=== PATIENT | male | born 1940 | race Caucasian/White ===

== ENCOUNTER 2016-09-05 10:54 | Emergency (ER) | payer MEDICARE ==
[~2016-09-05] VITALS: Ht 180.3 cm; Wt 115.0 kg
[~2016-09-05 10:54] MED LIST: FLOV44AE IN; LOPI600T PO; LOSA50TA PO; METF1000 PO; METO100T9 PO; NORT50CA PO; NOVO7030P2 SQ; PRED20 PO; ULTR50TA PO; VENTAER INH; VITA10002 PO; WAL-10TA2 PO; testosterone
[2016-09-05 10:57] VITALS: BP 142/63; PULSE 73; RESP 17; TEMP 98.2; O2SAT 100
[2016-09-05] MEDS ORDERED: NOVO7030P2 SQ ×2 (11:10)
[2016-09-05] MEDS ORDERED: LORA10TA PO (11:10)
[2016-09-05] MEDS ORDERED: GEMF600T PO (11:10)
[2016-09-05] MEDS ORDERED: ASPI81CH CHEW (11:10)
[2016-09-05] MEDS ORDERED: METO50TA PO (11:10)
[2016-09-05] MEDS ORDERED: VITATAB43 PO (11:10)
[2016-09-05] MEDS ORDERED: LOSA50TA PO (11:10)
[2016-09-05] MEDS ORDERED: FLUT50SP EACH NARE (11:10)
[2016-09-05] MEDS ORDERED: NORT50CA PO (11:10)
[2016-09-05] MEDS ORDERED: METF1000 PO (11:10)
[2016-09-05] MEDS ORDERED: CHOL100025 CHEW (11:10)
[2016-09-05] MEDS ORDERED: TRAM50TA PO (11:10)
--- NOTE | 2016-09-05 11:25 | PD ---
Physical Exam Date Seen by Provider: Sep 05, 2016 Narrative Patient presents several days following some superficial lacerations to his right foot Data Data Last Documented VS Vital Signs Date Time Temp Pulse Resp B/P Pulse Ox O2 Delivery O2 Flow Rate FiO2 09/05/16 10:57 98.2 73 17 142/63 100 MDM Supervised Visit with CHLOÉ: Yes Narrative Course I, Dr. Mccoy, have reviewed the advance practice practitioner's documentation and am in agreement, met with the patient face to face, made the diagnosis, and the medical decision making was done by me. *My assessment and Findings: GENERAL: Awake and alert and in no acute distress. SKIN: Warm and dry. He has a couple of superficial lacerations on the right foot which are angry appearing. The surrounding skin is not red or hot. CARDIOVASCULAR: Regular rate and rhythm. RESPIRATORY: No accessory muscle use. MUSCULOSKELETAL: No obvious deformities. No edema. NEUROLOGICAL: Awake and alert. No obvious cranial nerve deficits. Motor grossly within normal limits. Normal speech. PSYCHIATRIC: Appropriate mood and affect; insight and judgment normal. Layla Mccoy MD Sep 05, 2016 11:25
[2016-09-05] MEDS ORDERED: BACT800T5 PO (11:29)
[2016-09-05] MEDS ORDERED: CEPH-460 PO (11:29)
[2016-09-05] MEDS ORDERED: TETANUS/DIPHTHERIA TOXOID ADULT 0.5 ML VIAL IM ONE (11:30)
[2016-09-05] MEDS ORDERED: CEPHALEXIN MONOHYDRATE 500 MG CAP PO ONE (11:30)
[2016-09-05] MEDS ORDERED: SULFAMETHOXAZOLE-TRIMETHOPRIM DS 800-160 MG TAB PO ONE (11:30)
--- NOTE | 2016-09-05 11:30 | PD ---
HPI Chief Complaint: Skin Problem Time Seen by Provider: 11:23 Travel History International Travel<30 days: No Contact w/Intl Traveler<30days: No Traveled to known affect area: No History of Present Illness HPI 76-year-old male presents to the emergency department with his for evaluation of a small area of erythema to his right dorsal foot. He states this occurred on Wednesday, 5 days ago. However, his states it occurred last Wednesday. He states that he scratched it on a rug that he lays down to roll a chair over. The patient states the erythema has been slowly worsening. He denies any fevers or chills. He reports a history of hypertension and diabetes. Patient also reports history of peripheral neuropathy. He is unsure of his tetanus immunization is up-to-date, but does not think he has had in several years. Patient is ambulatory. He reports some chronic right hip pain, denies any other complaints at this time. PFSH Past Medical History Cardiovascular Problems: Yes (PACEMAKER) COPD: Yes Diabetes: Yes Patient Takes Glucophage: No Hypertension: Yes Respiratory: Yes (COPD) Sleep Apnea: Yes Influenza Vaccination: Yes Past Surgical History Appendectomy: Yes Other Surgery: Yes (knee replacement ) Social History Alcohol Use: No Tobacco Use: No Substance Use: No Allergies-Medications (Allergen,Severity, Reaction): Coded Allergies: Dilaudid (Verified Allergy, Severe, 09/05/16) Niacin (Verified Allergy, Severe, 09/05/16) Reported Meds & Prescriptions Reported Meds & Active Scripts Active Reported Novolin 70-30 Inj (Insulin Human Isoph/Insulin Regular) 1,000 Unit/10 Ml Vial 14 Units SQ HS Novolin 70-30 Inj (Insulin Human Isoph/Insulin Regular) 1,000 Unit/10 Ml Vial 32 Units SQ AC BREAKFAST Tramadol (Tramadol HCl) 50 Mg Tab 50 Mg PO Q4H PRN Fluticasone Nasal [place] 50 Mcg/Act Naspr 50 Mcg EACH NARE BID 50 mcg/spray Vitamin [id number] Acid (Cobalamine Combinations) 500-400 Mcg Tab 1 Tab PO DAILY Vitamin D3 (Cholecalciferol) 1,000 Unit Chew 2,000 Units CHEW DAILY Aspirin 81 Mg Chew 81 Mg CHEW DAILY Loratadine 10 Mg Tab 10 Mg PO HS Metformin (Metformin HCl) 1,000 Mg Tab 1,000 Mg PO BIDPC With meals Nortriptyline (Nortriptyline HCl) 50 Mg Cap 50 Mg PO HS Losartan (Losartan Potassium) 50 Mg Tab 50 Mg PO DAILY Gemfibrozil 600 Mg Tab 600 Mg PO DAILY Take 30 minutes prior to breakfast and dinner. Metoprolol Tartrate 50 Mg Tab 50 Mg PO BID Review of Systems Except as stated in HPI: all other systems reviewed are Neg General / Constitutional: No: Fever, Chills Eyes: No: Blurred Vision, Photophobia, Redness HENT: No: Lightheadedness, Congestion Cardiovascular: No: Chest Pain or Discomfort Respiratory: No: Shortness of Breath Gastrointestinal: No: Vomiting, Abdominal Pain, Hematemesis Genitourinary: No: Hematuria, Pelvic Pain, Flank Pain Musculoskeletal: Positive: Pain (chronic), No: Limited ROM, Weakness Skin: Positive Other (erythema) Neurologic: No: Weakness, Dizziness, Syncope, Headache, Change in Mentation Psychiatric: No: Anxiety, Depression Physical Exam Narrative GENERAL: Well-developed well-nourished elderly male patient, afebrile. SKIN: Warm and dry. Patient has a 2 cm x 1 cm area of erythema without fluctuance or induration to the right dorsal foot with a less than 1 cm scab just distal to this. There is no warmth. No drainage. No lymphangiitis. Patient has full range of motion of all digits of the right foot. He has reduced sensation to the distal aspect of the right foot, but states is chronic for him due to diabetes. HEAD: Normocephalic. Atraumatic. EYES: No scleral icterus. No injection or drainage. NECK: Supple, trachea midline. No JVD or lymphadenopathy. CARDIOVASCULAR: Regular rate and rhythm without murmurs, gallops, or rubs. Right pedal pulse is 2+. RESPIRATORY: Breath sounds equal bilaterally. No accessory muscle use. Lungs sounds are clear to auscultation. GASTROINTESTINAL: Abdomen soft, non-tender, nondistended. MUSCULOSKELETAL: No cyanosis, or edema. There is no tenderness to palpation over right hip. He has full flexion and extension and denies any trauma. BACK: Nontender without obvious deformity. No CVA tenderness. Data Data Last Documented VS Vital Signs Date Time Temp Pulse Resp B/P Pulse Ox O2 Delivery O2 Flow Rate FiO2 09/05/16 10:57 98.2 73 17 142/63 100 MDM Medical Decision Making Medical Screen Exam Complete: Yes Emergency Medical Condition: Yes Medical Record Reviewed: Yes Differential Diagnosis Cellulitis versus abscess versus chronic hip pain Narrative Course 76-year-old male presents to the emergency department for evaluation of mild erythema to the right foot. He does report history of diabetes. When asked the patient has any other complaints at this time, he does mention some chronic right hip pain, but denies any trauma. Physical exam reveals small area of erythema to the right dorsal foot without induration, fluctuance, warmth. No lymphangiitis. No tenderness over right hip with full range of motion. Tetanus immunization is updated. The patient will be given first dose of Bactrim and Keflex by mouth in the emergency department. He'll be discharged with a prescription for Bactrim and Keflex. He is instructed on proper wound care. He is instructed to return immediately for any acute worsening of symptoms and he is to follow up with his primary care physician. Patient is agreeable to this plan. The patient was discharged in stable condition with instructions, including return instructions and follow up instructions. Diagnosis Primary Impression: Cellulitis of foot, right Referrals: Primary Care Physician call for appointment Patient Instructions: Cellulitis (ED), General Instructions Additional Instructions: Clean areas to right foot twice daily with soap and water and apply over-the- counter antibiotic ointment. Keep right foot clean and dry. Monitor closely. Take antibiotics as directed until gone. Follow-up with your primary care physician. Return to the emergency department for any acute worsening of symptoms. Med/Other Pt SpecificInfo: Prescription(s) given Scripts Cephalexin (Keflex)500 Mg [id number] Mg PO Q6H 10 Days Ref 0 Prov:Mayda Tello 09/05/16 Sulfamethoxazole-Trimethoprim (Bactrim DS)800-160 Mg Tab1 Tab PO BID #20 TAB Ref 0 Prov:Mayda Tello 09/05/16 Disposition: 01 DISCHARGE HOME Condition: Stable Mayda Tello Sep 05, 2016 11:30
== END 2016-09-05 12:10 | disposition home or self-care (01) ==
LOC: NEPA 10:54
DX: L03.115 Cellulitis of right lower limb (principal); I10 Essential (primary) hypertension; E11.9 Type 2 diabetes mellitus without complications; G62.9 Polyneuropathy, unspecified; Z95.0 Presence of cardiac pacemaker; Z23 Encounter for immunization
CPT/HCPCS: 90471; 90714